=== PATIENT | female | born 1985 | race Caucasian/White ===

== ENCOUNTER → 2018-12-21 | Day surgery (SDC) | payer MEDICARE, OTHER ==
[~2018-12-21] VITALS: Ht 156.2 cm; Wt 98.2 kg
[~2018-12-21] MED LIST: BENZ1TAB10 PO; BENZOCAINE 20% 50 MCG/SPRAY 57 GM TP ONE; FentaNYL CITRATE-PF 100 MCG/2 ML VIAL ONE; LACO100 PO; LEVO25TA9 PO; LIDOCAINE 2% 5 ML JELLY TP ONE; LIDOCAINE 4% 50 ML SOLUTION TP ONE; METO25 PO; MIDAZOLAM HCL 2 MG/2 ML VIAL ONE; MethylPREDNISolone SOD SUCC 125 MG/2 ML VIAL IVP ONE; MethylPREDNISolone SOD SUCC 125 MG/2 ML VIAL ONE; OLAN7.5T2 PO; OXCA300T29 PO; OXYGEN THERAPY IH SCH; RISPC50 IM; SODIUM CHLORIDE 0.9% 1,000 ML IV ONE; TOPI200T PO
== END | disposition home or self-care (01) ==
LOC: SURGERY 06:18
PROVIDERS: ATTEND Internal Medicine Critical Care Medicine
DX: R05 Cough (principal); J98.8 Other specified respiratory disorders; J34.89 Other specified disorders of nose and nasal sinuses; J38.7 Other diseases of larynx; J38.4 Edema of larynx; B37.0 Candidal stomatitis
CPT/HCPCS: 31623; 31624; 71045; 84703; 87015; 87070; 87101; 87205; 87206; 87220; J2250; J2930; J3010; J7030; 88108